=== PATIENT | female | born 1950 | race Caucasian/White ===

== ENCOUNTER 2016-08-27 12:55 | Outpatient (CLI) | payer MEDICARE, BC | END 2016-08-27 12:56 | disposition home or self-care (01) | DX: Z12.31 Encounter for screening mammogram for malignant neoplasm of breast (principal) ==

== ENCOUNTER 2016-10-30 05:02 | Emergency (ER) | payer MEDICARE, BC ==
[2016-10-30] MEDS ORDERED: HYDROmorphone 1 MG/ML SYRINGE IM STA (05:22)
[2016-10-30] MEDS ORDERED: diazePAM 5 MG TABLET PO STA (05:22)
--- NOTE | 2016-10-30 05:22 | ED Physician Documentation ---
PD HPI BACK PAIN - Stated complaint Stated Complaint: LOW BACK PAIN - Chief complaint Chief Complaint: Back Pain - History obtained from History obtained from: Patient - History of Present Illness Timing - onset: Yesterday (morning) Timing - details: Gradual onset, Constant, Waxing and waning Pain level now: 4 Location: Lower, Left Quality: Pain, Spasm Associated symptoms: No: Fever, Weakness, Numbness, Incontinent of urine, Unable to urinate, Incontinent of stool Improves with: Rest Worsened by: Movement Similar symptoms before: Has not had sx before Recently seen: Not recently seen - Additional information Additional information: LBP since yesterday morning, right-sided without radiation. Denies trauma. She thinks this might be related to odd position she was in while painting her toenails the day before. She took oxycodone (from rx for shoulder pain), muscle relaxant (believes it was cyclobenzaprine), and half-tablet ambien; none of these provided adequate pain relief nor adequate sleep overnight. She drove self to ED. She took the medications approximately 10 PM last night. Denies h/o similar back pain. Review of Systems Constitutional: denies: Fever GI: reports: Reviewed and negative Musculoskeletal: reports: Back pain. denies: Neck pain Neurologic: denies: Focal weakness, Numbness PD PAST MEDICAL HISTORY - Past Medical History Past Medical History: Yes - Present Medications Home Medications: Ambulatory Orders Medication Instructions Recorded Confirmed Cyclobenzaprine [Flexeril] 10 mg ORAL TID PRN 10/30/16 10/30/16 Escitalopram [Lexapro] 10 mg ORAL DAILY 10/30/16 10/30/16 HYDROmorphone [Dilaudid] 2 - 4 mg PO Q6H PRN #14 tablet 10/30/16 Methylphenidate HCl [Ritalin] 10 mg ORAL DAILY 10/30/16 10/30/16 diazePAM [Valium] 5 mg PO TID PRN #14 tablet 10/30/16 oxyCODONE/ACET 5/325 [Percocet 5 1 tab ORAL Q6H PRN 10/30/16 10/30/16 mg/325 mg] - Allergies Allergies/Adverse Reactions: Allergies Allergy/AdvReac Type Severity Reaction Status Date / Time Penicillins Allergy Rash Verified 10/30/16 05:14 - Living Situation Living Arrangement: reports: At home - Social History Does the pt smoke?: No PD ED PE NORMAL - Vitals Vital signs reviewed: Yes - General General: Alert and oriented X 3, Well developed/nourished, Other (appears uncomfortable, painful distress that appears to wax and wane at times) - Abdomen Abdomen: Soft, Non tender, Non distended - Back Back: No CVA TTP, No spinal TTP, Other (tenderness left paralumbar) - Derm Derm: Normal color Results - Vitals Vitals: Vital Signs - 24 hr 10/30/16 10/30/16 05:06 06:53 Temperature 37 C Heart Rate 65 71 Respiratory 15 14 Rate Blood Pressure 155/72 H 130/69 O2 Saturation 100 95 Oxygen O2 Source Room air - Rads (name of study) lumbar xrays Radiology: Prelim report reviewed, See rad report PD MEDICAL DECISION MAKING - ED course Complexity details: reviewed results, re-evaluated patient, considered differential, d/w patient Departure - Departure Disposition: 01 Home, Self Care Clinical Impression: Back pain Qualifiers: Back pain location: low back pain Chronicity: acute Back pain laterality: left Sciatica presence: without sciatica Qualified Code(s): M54.5 - Low back pain Condition: Good Instructions: ED Neck Back Pain General Follow-Up: SANDRA HOPKINS MD [Primary Care Provider] - (Call to arrange for next available appointment) Prescriptions: HYDROmorphone [Dilaudid] 2 - 4 mg PO Q6H PRN #14 tablet PRN Reason: Pain diazePAM [Valium] 5 mg PO TID PRN #14 tablet PRN Reason: Spasms Comments: Do not take the oxycodone or the flexeril if you take the hydromorphone/valium combination. Discharge Date/Time: 10/30/16 07:05
[2016-10-30] MEDS ORDERED: diazePAM 5 MG TABLET PO ONE (05:29)
[2016-10-30] MEDS ORDERED: HYDROmorphone 1 MG/ML SYRINGE ONE (05:29)
--- NOTE | 2016-10-30 06:18 | XRAY Preliminary Report ---
Exam: XR Lumbar Spine 2 View IMPRESSION: Mild to moderate multilevel degenerative changes in the spine. [facility] SITE ID: [id number]
--- NOTE | 2016-10-30 06:21 | XRAY Report ---
EXAM: LUMBOSACRAL SPINE RADIOGRAPHY EXAM DATE: 10/30/2016 05:44 AM. CLINICAL HISTORY: Low back pain for 24 hours. COMPARISONS: None. TECHNIQUE: 3 views. FINDINGS: Alignment: No malalignment. Bones: Five [id number] lumbar vertebral bodies are present. No fractures or bone lesions. Disks: Multilevel disk space height loss as well as endplate osteophytosis. Facets: Multilevel facet arthropathy. Sacroiliac Joints: Unremarkable. Soft Tissues: There is moderate right hemicolon retained fecal material. IMPRESSION: Mild to moderate multilevel degenerative changes in the spine. [facility] Referring Provider Line: [phone] SITE ID: [id number]
[2016-10-30 06:56] VITALS: BP 130/69
== END 2016-10-30 07:05 | disposition home or self-care (01) ==
LOC: ED 05:02
DX: M54.5 Low back pain (principal)
CPT/HCPCS: 72100; 96372; 99283; A9270; J1170

== ENCOUNTER 2016-10-31 22:43 | Emergency (ER) | payer MEDICARE, BC ==
[2016-10-31] MEDS ORDERED: DEXAMETHASONE 10 MG/ML VIAL IVP STA (23:15)
[2016-10-31] MEDS ORDERED: SODIUM CHLORIDE 0.9% 1,000 ML IV ONE ×2 (23:15→23:20)
[2016-10-31] MEDS ORDERED: HYDROmorphone 1 MG/ML SYRINGE IVP STA (23:15)
[2016-10-31] MEDS ORDERED: ONDANSETRON 4 MG/2 ML VIAL IVP STA (23:15)
--- NOTE | 2016-10-31 23:19 | ED Physician Documentation ---
PD HPI BACK PAIN - Stated complaint Stated Complaint: BACK PAIN - Chief complaint Chief Complaint: Back Pain - History obtained from History obtained from: Patient - History of Present Illness Timing - onset: How many days ago (2) Timing - duration: Days (2) Timing - details: Abrupt onset, Still present Location: Lower, Right, Left Quality: Pain, Spasm, Sharp Associated symptoms: No: Fever, Weakness, Numbness, Incontinent of urine, Unable to urinate, Hematuria, Incontinent of stool Improves with: Rest, Position Worsened by: Movement, Twisting, Palpation Contributing factors: Other (The patient was in a prolonged positioning bent with her back doing her toenails.) Similar symptoms before: Diagnosis (Lumbar spasm) Recently seen: Emergency Dept - Additional information Additional information: 66-year-old female who ended up with some muscle spasm in her lower back after painting her toenails has had significant pain in her lower back and she is unable to get comfortable. 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 She did not seem to get much relief with this at all and she is back here tonight. She has had pain in her lower back previously never this bad and she has not had radiation of the pain. She has pain in her SI joints bilaterally tonight it is worse on the right side. Review of Systems Constitutional: denies: Fever Eyes: denies: Decreased vision Nose: denies: Congestion Throat: denies: Sore throat Cardiac: denies: Chest pain / pressure Respiratory: denies: Dyspnea, Cough GI: denies: Abdominal Pain, Nausea, Vomiting, Constipation, Diarrhea : denies: Dysuria, Frequency Skin: denies: Rash Musculoskeletal: reports: Back pain. 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, Oophrectomy, Breast reduction - Present Medications Home Medications: Ambulatory Orders Medication Instructions Recorded Confirmed Cyclobenzaprine [Flexeril] 10 mg ORAL TID PRN 10/30/16 10/31/16 Escitalopram [Lexapro] 10 mg ORAL DAILY 10/30/16 10/31/16 HYDROmorphone [Dilaudid] 2 - 4 mg PO Q6H PRN #14 tablet 10/30/16 10/31/16 Methylphenidate HCl [Ritalin] 10 mg ORAL DAILY 10/30/16 10/31/16 diazePAM [Valium] 5 mg PO TID PRN #14 tablet 10/30/16 10/31/16 oxyCODONE/ACET 5/325 [Percocet 5 1 tab ORAL Q6H PRN 10/30/16 10/31/16 mg/325 mg] Cyclobenzaprine [Flexeril] 10 mg PO TID PRN #20 tablet 10/31/16 Oxycodone HCl/Acetaminophen 1 each PO Q6HR PRN #20 tablet 10/31/16 [Oxycodone-Acetaminophen 5-325] - Allergies Allergies/Adverse Reactions: Allergies Allergy/AdvReac Type Severity Reaction Status Date / Time Penicillins Allergy Rash Verified 10/31/16 22:55 - Social History Does the pt smoke?: No Does the pt drink ETOH?: No Does the pt have substance abuse?: No - Immunizations Immunizations are current?: No - POLST Patient has POLST: No PD ED PE NORMAL - Vitals Vital signs reviewed: Yes (Hypertension with a wide pulse pressure.) - General General: Well developed/nourished, Other (The patient does appear to be in pain with supervisor dimension warehouse tone and flattened affect.) - HEENT HEENT: Atraumatic, PERRL - Respiratory Respiratory: No respiratory distress - Abdomen Abdomen: Soft, Non tender - Back Back: No CVA TTP, No spinal TTP, Other (There is some mild point tenderness to the SI joints bilaterally worse on the right than the left.) - Derm Derm: Normal color, Warm and dry, No rash - Extremities Extremities: No deformity, No edema - Neuro Neuro: Alert and oriented X 3, booth cashier 2-12 intact, No motor deficit, No sensory deficit, Normal speech - Psych Psych: Normal mood Results - Vitals Vitals: Vital Signs - 24 hr 10/31/16 10/31/16 10/31/16 22:50 23:49 23:56 Temperature 36.4 C L Heart Rate 80 72 70 Respiratory 16 16 16 Rate Blood Pressure 132/55 H 115/51 L 115/51 L O2 Saturation 99 96 97 Oxygen O2 Source Room air Procedures - IVC sono (time) 4190 Bedside IVC sono: IVC measures (cm) (1.12), IVC collapsed c insp (cm) (complete) , Dehydration PD MEDICAL DECISION MAKING - ED course Complexity details: reviewed old records, reviewed results, re-evaluated patient , considered differential, d/w patient, d/w family ED course: 66-year-old female with persistent back pain over the last 2 days and no significant relief with the use of Dilaudid at 2 mg and Valium. She is in here tonight with persistent pain in her lower back and spasm. Here in the emergency department she does appear to have a wide pulse pressure and interrogation of the inferior vena cava reveals dehydration. Frequently associated with muscle spasm of the lower back this will be treated here in the emergency department with intravenous saline. She is also administered Dilaudid and Zofran as well as dexamethasone. I have discussed with the patient the dose of her Dilaudid is likely inadequate and not similar to what she has taken previously with oxycodone. She does not have oxycodone left at home. Departure - Departure Disposition: 01 Home, Self Care Clinical Impression: Spasm of back muscles, Dehydration Condition: Stable Instructions: ED Dehydration, ED Spasm Back No Trauma Follow-Up: Will Kingston MD [Primary Care Provider] - Prescriptions: Oxycodone HCl/Acetaminophen [Oxycodone-Acetaminophen 5-325] 1 each PO Q6HR PRN # 20 tablet PRN Reason: Pain Cyclobenzaprine [Flexeril] 10 mg PO TID PRN #20 tablet PRN Reason: Spasms
[2016-10-31] MEDS ORDERED: ONDANSETRON 4 MG/2 ML VIAL ONE (23:20)
[2016-10-31] MEDS ORDERED: DEXAMETHASONE 10 MG/ML VIAL ONE (23:20)
[2016-10-31] MEDS ORDERED: HYDROmorphone 1 MG/ML SYRINGE ONE (23:21)
[2016-11-01 00:35] VITALS: BP 115/55
== END 2016-11-01 00:37 | disposition home or self-care (01) ==
LOC: ED 22:43
DX: M62.830 Muscle spasm of back (principal); E86.0 Dehydration
CPT/HCPCS: 96374; 96375; 99283; 99284; J1170

== ENCOUNTER 2016-12-07 15:09 | Emergency (ER) | payer MEDICARE, BC ==
--- NOTE | 2016-12-07 15:13 | ED Physician Documentation ---
PD HPI SKIN - Stated complaint Stated Complaint: RASH/BACK/MUSCLE PX - History obtained from History obtained from: Patient - History of Present Illness Timing - onset: How many days ago (few days of left upper back/scapular pain radiating around to left. Noted 2 days of increasing blistered patch of rash left anterior chest under bra area, and some now on left back.) Timing - duration: Days (few) Timing - details: Gradual onset, Still present Location: Chest, Back (left side) Quality / character: Itchy, Painful, Vesicular Associated symptoms: Myalgias. No: Fever, N/V/D Similar symptoms before: Has not had sx before Review of Systems Constitutional: reports: Myalgias. 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, Oophrectomy, Breast reduction - Present Medications Home Medications: Ambulatory Orders Medication Instructions Recorded Confirmed Escitalopram [Lexapro] 10 mg ORAL DAILY 10/30/16 12/07/16 Methylphenidate HCl [Ritalin] 20 mg PO DAILY 10/30/16 12/07/16 oxyCODONE/ACET 5/325 [Percocet 5 1 tab PO PRN PRN 10/30/16 12/07/16 mg/325 mg] Acyclovir 800 mg PO 5XD #25 tablet 12/07/16 Amitriptyline [Elavil] 25 mg PO HS #20 tablet 12/07/16 Dexamethasone [Decadron] 4 mg PO DAILY #5 tablet 12/07/16 Estradiol Acetate [Femring] 1 unit VG 12/07/16 HYDROcod/ACETAM 5/325 [[place] 5/325] 1 tab PO Q6H PRN #20 tablet 12/07/16 Losartan Potassium [Losartan 100 mg PO DAILY 12/07/16 12/07/16 Potassium] Ranitidine HCl [Zantac] 50 mg PO PRN PRN 12/07/16 12/07/16 Zolpidem [Ambien] 5 mg PO DAILY 12/07/16 12/07/16 - Allergies Allergies/Adverse Reactions: Allergies Allergy/AdvReac Type Severity Reaction Status Date / Time Penicillins Allergy Rash Verified 12/07/16 15:23 - Social History Does the pt smoke?: No Does the pt drink ETOH?: No Does the pt have substance abuse?: No - Immunizations Immunizations are current?: No - POLST Patient has POLST: No PD ED PE NORMAL - Vitals Vital signs reviewed: Yes - General General: Alert and oriented X 3 - Neck Neck: Supple, no meningeal sign, No adenopathy - Derm Derm: Normal color, Warm and dry, Other (left anterolateral chest with patch of red based, vesicular rash that is tender. Tender along lateral chest in same skin line, without rash. Small couple of little bumps left parathoracic muscle area at T5 level c/w early patch/rash. ) Results - Vitals Vitals: Vital Signs - 24 hr 12/07/16 15:18 Temperature 36.3 C L Heart Rate 73 Respiratory 14 Rate Blood Pressure 172/84 H O2 Saturation 100 Oxygen O2 Source Room air PD MEDICAL DECISION MAKING - ED course Complexity details: considered differential, d/w patient Departure - Departure Disposition: 01 Home, Self Care Clinical Impression: Shingles rash Qualifiers: Herpes zoster complications: without complications Qualified Code(s): B02.9 - Zoster without complications Condition: Stable Record reviewed to determine appropriate education?: Yes Instructions: ED Shingles Follow-Up: Will Kingston MD [Primary Care Provider] - Prescriptions: Acyclovir 800 mg PO 5XD #25 tablet Dexamethasone [Decadron] 4 mg PO DAILY #5 tablet Amitriptyline [Elavil] 25 mg PO HS #20 tablet HYDROcod/ACETAM 5/325 [[place] 5/325] 1 tab PO Q6H PRN #20 tablet PRN Reason: Pain Comments: This looks like a shingles rash. For that we would use acyclovir antiviral 5 times a day for 5 days. Additionally dexamethasone steroid anti-inflammatory to decrease the nerve irritation also daily for 5 days. He can use Elavil is 1 medicine to try to decrease the nerve irritation part and take that nightly for 3 weeks. Tylenol or ibuprofen if needed for pain and add hydrocodone if needed. Recheck with your primary care if not better over the next week or so. Discharge Date/Time: 12/07/16 16:08
[2016-12-07 15:23] VITALS: BP 172/84
== END 2016-12-07 16:08 | disposition home or self-care (01) ==
LOC: ED 15:09
DX: B02.9 Zoster without complications (principal)
CPT/HCPCS: 87252; 99283

== ENCOUNTER 2017-04-24 10:24 | Outpatient (CLI) | payer MEDICARE, BC ==
[2017-04-24 18:49] LABS: BASOPHILS % (AUTO) 0.4 %; EOSINOPHILS # (AUTO) 0.1 10^3/uL (0.0-0.7); EOSINOPHILS % (AUTO) 1.4 %; LYMPHOCYTES # (AUTO) 2.7 10^3/uL (1.5-3.5); LYMPHOCYTES % (AUTO) 40.6 %; MEAN CORPUSCULAR HEMOGLOBIN 30.9 pg (27.0-31.0); MEAN CORPUSCULAR HGB CONC 32.8 g/dL (32.0-36.0); MEAN CORPUSCULAR VOLUME 94.4 fL (81.0-99.0); MEAN PLATELET VOLUME 8.2 fL (7.9-10.8); MONOCYTES # (AUTO) 0.5 10^3/uL (0.0-1.0); MONOCYTES % (AUTO) 7.4 %; NEUTROPHILS # (AUTO) 3.3 10^3/uL (1.5-6.6); NEUTROPHILS % (AUTO) 50.2 %; PLT - PLATELET COUNT 251 10^3/uL (130-450); RED BLOOD COUNT 3.87 10^6/uL (4.20-5.40); RED CELL DISTRIBUTION WIDTH 14.2 % (12.0-15.0); WHITE BLOOD COUNT 6.6 x10^3/uL (4.8-10.8)
[2017-04-24 19:03] LABS: ALBUMIN 4.2 g/dL (3.2-5.5); ALBUMIN/GLOBULIN RATIO 1.6 (1.0-2.2); BILIRUBIN,TOTAL 0.4 mg/dL (0.2-1.0); CALCIUM 9.1 mg/dL (8.5-10.3); CREATININE 0.7 mg/dL (0.4-1.0); TOTAL PROTEIN 6.9 g/dL (6.7-8.2)
== END 2017-04-24 10:25 | disposition home or self-care (01) ==
LOC: LAB.F 10:24
PROVIDERS: ATTEND Family Medicine
DX: I10 Essential (primary) hypertension (principal); D64.9 Anemia, unspecified
CPT/HCPCS: 36415; 80053; 82607; 85025

== ENCOUNTER 2017-05-16 08:48 | Outpatient (CLI) | payer MEDICARE, BC ==
--- NOTE | 2017-05-16 10:34 | MRI Report ---
EXAM: RIGHT ANKLE/HINDFOOT MRI WITHOUT CONTRAST EXAM DATE: 05/16/2017 09:34 AM. CLINICAL HISTORY: Chronic right Achilles tendon pain for 3 months. COMPARISON: None. TECHNIQUE: Multiplanar, multisequence T1-weighted and fluid-sensitive sequences of the ankle/hindfoot without contrast. Other: None. FINDINGS: Bones and Articular Cartilage: No acute fracture or bone lesions. There is a bipartite os peroneum va riant. Minimal marrow edema within the os peroneum. Articular cartilage is within normal limits. Ligaments: The anterior and posterior tibiofibular, anterior and posterior talofibular, and calcaneof ibular ligaments are intact. The deep and superficial deltoid and spring ligaments are intact. Anterior Tendons: The tibialis anterior, extensor hallucis longus, and extensor digitorum longus tend ons are unremarkable. Medial Tendons: Mild posterior tibialis tenosynovitis. Flexor digitorum longus and flexor hallucis lo ngus tendons are unremarkable. Lateral Tendons: The peroneus brevis and longus are unremarkable. Achilles Tendon: Diffuse fusiform enlargement and diffuse slight T2 hyperintense signal at the centra l aspect of the Achilles tendon consistent with tendinosis. There are also low-grade partial-thicknes s tears within the lateral and medial aspects of the Achilles tendon. Musculature: No edema or fatty atrophy. Other: No effusions. The contents of the sinus tarsi and tarsal tunnel are unremarkable. No plantar f asciitis. The subcutaneous tissues are unremarkable. IMPRESSION: 1. Tendinosis and low-grade partial thickness tears at the mid Achilles tendon. 2. Bipartite os peroneum variant. Minimal marrow edema within the os peroneum. 3. Mild posterior tibialis tenosynovitis. [facility] MUSCULOSKELET[facility] SE[facility] Referring Provider Line: [phone] SITE ID: [id number]
== END 2017-05-16 08:49 | disposition home or self-care (01) ==
LOC: DI 08:48
PROVIDERS: ATTEND Orthopaedic Surgery
DX: S86.011A Strain of right Achilles tendon, initial encounter (principal); M65.861 Other synovitis and tenosynovitis, right lower leg

== ENCOUNTER 2017-06-05 13:00 | Outpatient (CLI) | payer MEDICARE, BC | END 2017-06-05 13:01 | disposition home or self-care (01) | LOC: LAB.R 13:00 | PROVIDERS: ATTEND Family Medicine | DX: G89.4 Chronic pain syndrome (principal) | CPT/HCPCS: 81599 ==

== ENCOUNTER 2022-09-09 00:20 | Emergency (ER) | payer MEDICARE, BC ==
--- NOTE | 2022-09-09 01:54 | ED Physician Documentation ---
PD HPI LOWER EXT INJURY - Stated complaint Stated Complaint: RT FOOT PX - Chief complaint Chief Complaint: Trauma Ext - History obtained from History obtained from: Patient - History of Present Illness PD HPI LOW EXT INJURY LOCATION: Right, Foot Type of injury: Other (had bunion surgery 9 days ago and had been doing okay. Ongoing pain with elevated and NSAIDs and oxycodone pain meds. Was starting to have some more partial weight bearing and use, walking to lateral foot as directed. Has original dressing still on. Has had 2 days steady increase in distal foot/toes) Where injury occurred: Home Associated symptoms: Numbness (some in toes the past couple of days. with more swelling to toes.). No: Weakness Contributing factors: Prior ortho surgery (9 days ago) Similar symptoms before: Has not had sx before Recently seen: Surgery Review of Systems Constitutional: denies: Fever, Chills Musculoskeletal: reports: Extremity pain Neurologic: reports: Numbness. 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, Hysterectomy, Oophrectomy, Breast reduction - Present Medications Home Medications: Ambulatory Orders Medication Instructions Recorded Confirmed Escitalopram [Lexapro] 10 mg ORAL DAILY 10/30/16 12/07/16 Methylphenidate HCl [Ritalin] 20 mg PO DAILY 10/30/16 12/07/16 oxyCODONE/ACET 5/325 [Percocet 5 1 tab PO PRN PRN 10/30/16 12/07/16 mg/325 mg] Acyclovir 800 mg PO 5XD #25 tablet 12/07/16 Amitriptyline [Elavil] 25 mg PO HS #20 tablet 12/07/16 Estradiol Acetate [Femring] 1 unit VG 12/07/16 HYDROcod/ACETAM 5/325 [[place] 5/325] 1 tab PO Q6H PRN #20 tablet 12/07/16 Losartan Potassium 100 mg PO DAILY 12/07/16 12/07/16 Zolpidem [Ambien] 5 mg PO DAILY 12/07/16 12/07/16 dexAMETHasone [Decadron] 4 mg PO DAILY #5 tablet 12/07/16 raNITIdine HCL [Zantac] 50 mg PO PRN PRN 12/07/16 12/07/16 oxyCODONE [Roxicodone] 5 mg PO Q6H PRN #15 tablet 09/09/22 - Allergies Allergies/Adverse Reactions: Allergies Allergy/AdvReac Type Severity Reaction Status Date / Time Penicillins Allergy Rash Verified 12/07/16 15:23 latex AdvReac Rash Verified 09/09/22 00:34 lisinopril AdvReac Unknown Verified 09/09/22 00:34 - Social History Does the pt smoke?: No Does the pt drink ETOH?: No Does the pt have substance abuse?: No - Immunizations Immunizations are current?: No - POLST Patient has POLST: No PD ED PE NORMAL - Vitals Vital signs reviewed: Yes - General General: Alert and oriented X 3, No acute distress, Well developed/nourished - Derm Derm: Normal color, Warm and dry, No rash (no redness, warmth nor purulence.) - Extremities Extremities: No calf tenderness / cord, Other (there is snugly tight dressing from mid foot to MTPs. Edema in toes with mild dusky color but has cap refill. Proximal to the dressing is normal skin. No red streaking nor calf tenderness. Dressing on foot is initial postop by surgeon. I removed it. ) - Neuro Neuro: Alert and oriented X 3, No motor deficit, No sensory deficit, Normal speech Results - Vitals Vitals: Vital Signs - 24 hr 09/09/22 09/09/22 00:28 03:11 Temperature 36.4 C L Heart Rate 84 73 Respiratory 18 16 Rate Blood Pressure 136/63 H 170/86 H O2 Saturation 97 97 Oxygen O2 Source Room air - Rads (name of study) foot Relevant Findings:: Prelim report reviewed, EMP independent interpretation of test (post operative changes. pin in place and appears appropriate. ), See rad report PD Medical Decision Making - ED course Complexity details: reviewed results, considered differential (does not appear infected. There is toe edema and dusky initially that improves with removing the tight wrap/bandaging. She states pain is improving. I think some edema with bruising and some walking combined with the tight bandaging now to cause pressure in compartments. ), d/w patient Departure - Departure Disposition: 01 Home, Self Care Clinical Impression: Acute postoperative pain of right foot Condition: Stable Record reviewed to determine appropriate education?: Yes Follow-Up: SANDRA HOPKINS MD [Primary Care Provider] - Prescriptions: oxyCODONE [Roxicodone] 5 mg PO Q6H PRN #15 tablet PRN Reason: Pain Comments: The positioning of the screw and bone pieces on x-ray looks appropriate and as expected postoperative. I do not see any other bone lesions in the rest of the foot. Clinically her foot wound does not appear to have any infection to it. Your calf is not tender and I have no suspicion for blood clots at this time. I would presume you are foot is hurting from still inflammation related from the surgery and also some abnormal stress pattern on the rest of the foot because of the way you are walking due to the surgery and pain in splint. Continue with the splint and crutches as directed by your surgeon. Continue with ice elevate and rest periodically to help reduce swelling. Continue with the ibuprofen 2-3 times daily with food. Tylenol every 4-6 hours as needed for pain and continue the oxycodone every 4-6 hours if needed. Call your foot surgeon later today and let them know the pain has been worse. See if they want to follow-up with you sooner than the routine follow-up scheduled. Return to the ER if worsening or other symptoms develop such as calf pain or swelling, fever, worse pain etc. I sent prescription to [facility] pharmacy for some more pain medicine. I am prescribing a short course of narcotic pain medication for you. These are potentially dangerous and addictive medications that should be used carefully. These medications may constipate you. Take an [id number] stool softener such as docusate twice daily with plenty of water while taking these medications. If you go 24 hours without a bowel movement, take [id number] MiraLAX, per package instructions. Do not drink or drive while taking these medications. If you received narcotic or sedating medications while in the emergency department do not drive for 24 hours. Store this medication in a safe, secure place and out of reach of children. It is a violation of federal law to give or sell this medication to another person or to use in a manner other than prescribed. The ED will not refill narcotic prescriptions, including prescriptions lost or stolen. You can dispose of unwanted medications at the [facility]'s office or at several pharmacies such as [facility]. Discharge Date/Time: 09/09/22 03:14
[2022-09-09] MEDS: oxyCODONE/ACET 5/325 Prepack 4 PO STA (03:14)
[2022-09-09 03:16] VITALS: BP 170/86
--- NOTE | 2022-09-09 08:10 | XRAY Report ---
PROCEDURE: Foot 3 View RT INDICATIONS: post operative foot pain TECHNIQUE: 3 views of the foot were acquired. COMPARISON: None relevant FINDINGS: Bones: Degenerative changes of the first MTP. No displaced fracture or dislocation. First metatarsal osteotomy fixation hardware in place. There is lucency at the first metatarsal head. Soft tissues: No suspicious calcifications. Calcaneal enthesopathy. IMPRESSION: No acute osseous abnormality. Postoperative changes at the first MTP with lucency at the first metata rsal head of uncertain etiology and chronicity, correlate with location of symptoms. If there is high concern for further derangement, consider cross-sectional imaging or nuclear medicine bone scan. Ag ree with preliminary report. Reviewed by: Ronnie Villafuerte MD on 09/09/2022 8:09 AM PDT Approved by: Ronnie Villafuerte MD on 09/09/2022 8:09 AM PDT Station ID: [id number]
--- NOTE | 2022-09-09 10:03 | MISCELLANEOUS PROVIDER NOTE ---
Miscellaneous Provider Note - - Note: Patient was seen overnight by the emergency physician for postoperative pain and prescription was sent to [facility] for oxycodone. [facility] pharmacy and the patient both called this morning to state that [facility] does not have medication in stock to fill her prescription. She is asking if we can send the prescription to [facility] who reportedly does have oxycodone in stock and is able to fill the prescription. Reviewed overnight physician's notes and we will resend the prescription to [facility] in [place].
== END 2022-09-09 03:14 | disposition home or self-care (01) ==
LOC: ED 00:20
DX: G89.18 Other acute postprocedural pain (principal); M79.671 Pain in right foot; Z79.899 Other long term (current) drug therapy; Z91.040 Latex allergy status
CPT/HCPCS: 99283; 99284

== ENCOUNTER 2023-08-10 11:33 | Outpatient (CLI) | payer MEDICARE, BC | END 2023-08-10 23:59 | disposition critical access hospital (66) | LOC: EMS 11:33 | DX: R11.2 Nausea with vomiting, unspecified (principal); R19.7 Diarrhea, unspecified | CPT/HCPCS: A0425; A0427 ==

== ENCOUNTER 2023-08-10 12:02 | Emergency (ER) | payer MEDICARE, BC ==
[2023-08-10 12:22] LABS: BASOPHILS % (AUTO) 0.1 %; EOSINOPHILS % (AUTO) 0.4 %; HCT - HEMATOCRIT 38.5 % (37.0-47.0); HGB - HEMOGLOBIN 12.5 g/dL (12.0-16.0); LYMPHOCYTES # (AUTO) 1.8 10^3/uL (1.5-3.5); LYMPHOCYTES % (AUTO) 23.7 %; MEAN CORPUSCULAR HEMOGLOBIN 30.2 pg (27.0-31.0); MEAN CORPUSCULAR HGB CONC 32.5 g/dL (32.0-36.0); MEAN PLATELET VOLUME 8.6 fL (7.9-10.8); MONOCYTES # (AUTO) 0.5 10^3/uL (0.0-1.0); MONOCYTES % (AUTO) 6.2 %; NEUTROPHILS # (AUTO) 5.3 10^3/uL (1.5-6.6); NEUTROPHILS % (AUTO) 69.1 %; PLT - PLATELET COUNT 299 10^3/uL (130-450); RED BLOOD COUNT 4.14 10^6/uL (4.20-5.40); RED CELL DISTRIBUTION WIDTH 14.2 % (12.0-15.0); WHITE BLOOD COUNT 7.7 x10^3/uL (4.8-10.8)
[2023-08-10 12:36] LABS: ALBUMIN 4.4 g/dL (3.2-5.5); ALBUMIN/GLOBULIN RATIO 1.4 (1.0-2.2); BILIRUBIN,TOTAL 0.5 mg/dL (0.2-1.0); CALCIUM 9.7 mg/dL (8.5-10.3); CREATININE 0.8 mg/dL (0.6-1.3); POTASSIUM 3.9 mmol/L (3.5-4.5); TOTAL PROTEIN 7.5 g/dL (6.4-8.9)
[2023-08-10] MEDS: SODIUM CHLORIDE 0.9% 1,000 ML IV STA (12:36)
--- NOTE | 2023-08-10 12:41 | ED Physician Documentation ---
PD HPI NVD - Stated complaint Stated Complaint: N/V/D - Chief complaint Chief Complaint: Abd Pain - History obtained from History obtained from: Patient - History of Present Illness Timing - onset: Yesterday Timing - details: Gradual onset Pain level max: 0 Pain level now: 0 Associated symptoms: No: Fever, Chest pain, Hematemesis, Melena, Hematochezia, Dizzy, Near syncope / syncope Contributing factors: No: Sick contact, Bad food, Travel, Recent antibiotics, Alcohol use, Anticoagulated - Additonal information Additional information: Patient is a 73-year-old female who presents to the emergency department stating that she took her first dose of Ozempic yesterday. Since that has had nausea, vomiting, diarrhea. She is concerned about dehydration. No fevers. No chills. No blood in the stool. Nothing makes it better or worse. She received 4 mg of Zofran with EMS and the nausea is improving. Review of Systems Constitutional: denies: Fever, Chills : denies: Dysuria Skin: denies: Rash Musculoskeletal: denies: Neck pain, Back pain PD PAST MEDICAL HISTORY - Past Medical History Cardiovascular: None Endocrine/Autoimmune: None Psych: Depression, Anxiety, Other - Past Surgical History Past Surgical History: Yes General: Appendectomy /[employer]: section, Hysterectomy, Oophrectomy, Breast reduction - Present Medications Home Medications: Ambulatory Orders Medication Instructions Recorded Confirmed Escitalopram [Lexapro] 10 mg ORAL DAILY 10/30/16 12/07/16 Methylphenidate HCl [Ritalin] 20 mg PO DAILY 10/30/16 12/07/16 oxyCODONE/ACET 5/325 [Percocet 5 1 tab PO PRN PRN 10/30/16 12/07/16 mg/325 mg] Acyclovir 800 mg PO 5XD #25 tablet 12/07/16 Amitriptyline [Elavil] 25 mg PO HS #20 tablet 12/07/16 Estradiol Acetate [Femring] 1 unit VG 12/07/16 HYDROcod/ACETAM 5/325 [[place] 5/325] 1 tab PO Q6H PRN #20 tablet 12/07/16 Losartan Potassium 100 mg PO DAILY 12/07/16 12/07/16 Zolpidem [Ambien] 5 mg PO DAILY 12/07/16 12/07/16 dexAMETHasone [Decadron] 4 mg PO DAILY #5 tablet 12/07/16 raNITIdine HCL [Zantac] 50 mg PO PRN PRN 12/07/16 12/07/16 oxyCODONE [Roxicodone] 5 mg PO Q6H PRN #15 tablet 09/09/22 Ondansetron Odt [Zofran] 4 mg TL Q6H PRN #10 tablet 08/10/23 - Allergies Allergies/Adverse Reactions: Allergies Allergy/AdvReac Type Severity Reaction Status Date / Time Penicillins Allergy Rash Verified 08/10/23 12:12 latex AdvReac Rash Verified 08/10/23 12:12 lisinopril AdvReac Unknown Verified 08/10/23 12:12 - Social History Does the pt smoke?: No Smoking Status: Never smoker Does the pt drink ETOH?: No Does the pt have substance abuse?: No - Immunizations Immunizations are current?: No - POLST Patient has POLST: No PD ED PE NORMAL - Vitals Vital signs reviewed: Yes - General General: Alert and oriented X 3, No acute distress - HEENT HEENT: Moist mucous membranes - Neck Neck: Supple, no meningeal sign - Cardiac Cardiac: RRR, Strong equal pulses - Respiratory Respiratory: No respiratory distress, Clear bilaterally - Abdomen Abdomen: Soft, Non tender, Non distended - Derm Derm: Warm and dry - Extremities Extremities: No edema - Neuro Neuro: Alert and oriented X 3 - Psych Psych: Normal mood, Normal affect Results - Vitals Vitals: Vital Signs - 24 hr 08/10/23 08/10/23 08/10/23 12:06 12:12 13:29 Temperature 36.2 C L Heart Rate 69 66 Respiratory 18 18 Rate Blood Pressure 158/78 H 162/68 H O2 Saturation 99 96 08/10/23 14:01 Temperature 36.4 C L Heart Rate 71 Respiratory 16 Rate Blood Pressure 162/71 H O2 Saturation 97 Oxygen O2 Source Room air - Labs Labs: Laboratory Tests 08/10/23 08/10/23 12:16 12:16 WBC 7.7 RBC 4.14 L Hgb 12.5 Hct 38.5 MCV 93.0 MCH 30.2 MCHC 32.5 RDW 14.2 Plt Count 299 MPV 8.6 Neut # (Auto) 5.3 Lymph # (Auto) 1.8 Amelia # (Auto) 0.5 Eos # (Auto) 0.0 Baso # (Auto) 0.0 Absolute Nucleated RBC 0.00 Nucleated RBC % 0.0 Sodium 137 Potassium 3.9 Chloride 103 Carbon Dioxide 27 Anion Gap 7.0 BUN 18 Creatinine 0.8 Estimated GFR (MDRD) 71 L Glucose 89 Calcium 9.7 Total Bilirubin 0.5 AST 15 ALT 11 Alkaline Phosphatase 79 Total Protein 7.5 Albumin 4.4 Globulin 3.1 Albumin/Globulin Ratio 1.4 Lipase 34 PD Medical Decision Making - ED course Complexity details: reviewed results, re-evaluated patient, considered differential, d/w patient ED course: Patient given IV fluids. Also had Zofran. Tolerating p.o. without difficulty. Zofran was given by EMS. Likely that she is experiencing side effects from Ozempic. We will continue supportive care, prescribe Zofran for home and have her follow-up with her PCP for further care. Abdomen is soft, nontender nondistended on serial exam. Patient counseled regarding signs and symptoms for which I believe and urgent re-evaluation would be necessary. Patient with good understanding of and agreement to plan and is comfortable going home at this time This document was made in part using voice recognition software. While efforts are made to proofread this document, sound alike and grammatical errors may occur Departure - Departure Disposition: 01 Home, Self Care Clinical Impression: Medication side effect Vomiting Qualifiers: Vomiting type: unspecified Nausea presence: with nausea Qualified Code(s): R11.2 - Nausea with vomiting, unspecified Condition: Good Instructions: ED Nausea Vomiting Follow-Up: SANDRA HOPKINS MD [Primary Care Provider] - Prescriptions: Ondansetron Odt [Zofran] 4 mg TL Q6H PRN #10 tablet PRN Reason: Nausea / Vomiting Comments: Your prescription was sent to [facility] in [place]. You can use the Zofran as needed for nausea and vomiting. This appears to be related to the Ozempic, this should improve over the next few days. Please return if you worsen. Forms: PCP List Discharge Date/Time: 08/10/23 14:02
[2023-08-10 14:09] VITALS: BP 162/71; O2SAT 97
== END 2023-08-10 14:02 | disposition home or self-care (01) ==
LOC: EDUNIT# → ED 12:02
DX: R11.2 Nausea with vomiting, unspecified (principal); T50.995A Adverse effect of other drugs, medicaments and biological substances, initial encounter
CPT/HCPCS: 36415; 80053; 83690; 85025; 99283; 99284